=== PATIENT | female | born 1950 | race Caucasian/White ===

== ENCOUNTER → 2019-09-05 | Day surgery (SDC) | payer MEDICARE, OTHER ==
[~2019-09-05] MED LIST: ADULT LOW DOSE81 MG PO; CALCIUM 500 +1 EAC5 PO; CIPRO500 MG PO; COLACE 100 MG100 MG PO; D3 + K2 DOTS 11 EACH PO; ECHINACEA & GO1 EACH PO; ECHINACEA GOLD PO; FISH OIL 1,0001 EAC5 PO; FOLBIC RF TABL1 EACH PO; FORTEO PEN750 MCG/3; FOSAMAX 70 MG T70 M1 PO; HYDROXYZINE HCL25 M1 PO; IRON325 PO; LIDOPATCH1 EACH TOP; LISINOPRIL5 MG PO; LOTREL 5-10 MG1 EACH PO; MEDROLDOSEPACK PO; METOCLOPRAMIDE; NORCO 5-325 TA1 EAC1 PO; NORCO 5-325 TA1 EACH PO; PEPCID40 MG PO; PERCOCET PO; PLAVIX 75 MG TA75 MG PO; PREDNISONE50 MG PO; PROAIR HFA8.5 GM IH; SPIRIVA INH; TYLENOL PM EX-1 EACH PO; ZOCOR20 MG PO; ZPAK PO; ZYRTEC 10 MG TA10 MG PO; ZYRTEC10 M5 PO; [UNRECOGNIZED DRUG - OTHER] PO
[2019-09-05 06:43] LABS: HEMOGLOBIN 10.8 gm/dL (12.0-15.0); MCH 31.2 pg (26.0-34.0); MCHC 34.6 g/dL (28.0-37.0); MPV 8.2 fl. (7.2-11.1); RBC 3.45 mil/uL (4.20-5.00); RDW-CV 12.6 % (10.5-14.5); WBC 4.8 thou/uL (4.0-11.0)
[2019-09-05 06:57] LABS: CALCIUM 8.4 mg/dL (8.5-10.1); CREATININE 1.1 mg/dL (0.6-1.3); POTASSIUM 4.1 mmol/L (3.5-5.1)
--- NOTE | 2019-09-05 10:27 | EKG ---
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: [facility] : 1950 Requested By: Kieran Orosco Order Number: [id number] Reading MD: Imtiaz Flores Measurements Intervals [place] Rate: 73 P: 66 NE: 168 QRS: 49 QRSD: 83 T: 72 QT: 397 QTc: 438 Interpretive Statements Sinus rhythm Borderline low voltage, extremity leads Compared to ECG 03/29/2017 16:38:34 ST (T wave) deviation no longer present Electronically Signed On 09-05-2019 10:25:48 CDT by Imtiaz Flores [email or web address] <ELECTRONICALLY SIGNED> By: Imtiaz Flores MD, [facility] 09/05/19 1025 0640 0640 Imtiaz Flores MD, [facility] /EPI
--- NOTE | 2019-09-12 08:26 | OP ---
[address] [address] OPERATIVE REPORT Name: RAYRAY RAMOS Room: [facility]#: [id number] Admission: 09/05/19 Attend Phys: Kieran Orosco DO Discharge: Date of : 48 Report #: [id number] THIS REPORT FOR: //name// cc: Paula Jeter MD, Elizabeth MD ~ THIS REPORT FOR: //name// CC: Kieran Patricia DATE OF SERVICE: 09/05/2019 PREOPERATIVE DIAGNOSIS: Right shoulder rotator cuff tear, chronic. POSTOPERATIVE DIAGNOSES: Right shoulder rotator cuff tear, chronic with superior labral tear anterior, posterior. PROCEDURES: Right shoulder arthroscopic surgery with extensive debridement of labrum and rotator cuff, subacromial decompression, mini open chronic rotator cuff repair and biceps tenodesis. SURGEON: Kieran Orosco DO AGENT PRODUCER: Teja Mcintyre DO ANESTHESIA: General with interscalene block in preoperative holding per Anesthesia. ESTIMATED BLOOD LOSS: 10 mL. ANTIBIOTICS: 2 grams Ancef IV preoperatively. DRAINS: None. SPECIMENS: None. COMPLICATIONS: None. FINDINGS: Upon arthroscopic examination of the right glenohumeral joint, there was a full thickness tearing of the supraspinatus noted. There was degenerative tearing of the superior labrum noted as well. 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 There was a partial thickness tearing of the subscapularis as well. Subacromial inspection revealed full thickness rotator cuff tear with bursitis and subacromial impingement. HISTORY: The patient is a 68-year-old female with longstanding history of right [facility] [address] [place] [address] OPERATIVE REPORT Name: RAYRAY RAMOS Room: [facility]#: [id number] Admission: 09/05/19 Attend Phys: Kieran Orosco DO Discharge: Date of : 48 Report #: [id number] shoulder pain. MRI was consistent with a full thickness rotator cuff tear. She had evidence of pain for biceps tendon on preoperative exam as well consistent with bicipital labral pain etiology. She has failed nonoperative treatment. She presents today for elective right shoulder arthroscopic surgery with rotator cuff repair, biceps tenodesis and all other indicated procedures. Risks, benefits, complications, indications, alternatives were discussed. She voiced understanding, signed consent and elected to proceed. Risks include but not limited to fracture, infection, neurovascular injury, continued pain, loss of motion, need for subsequent revision surgery, DVT, PE, MT, stroke, and even . DESCRIPTION OF PROCEDURE: The patient was taken to the operative suite, placed in supine position, given benefit of general anesthetic after being given an interscalene block in preoperative holding per anesthesia. She was transferred to beach chair position. All bony prominences were well padded. Right upper extremity was sterilely prepped and draped in usual fashion. Proper operative sites confirmed standard timeout technique. Standard posterior arthroscopic portal was made in the right shoulder. Arthroscopic camera was introduced in the glenohumeral joint, which was thoroughly explored and the above findings noted. Anterior portal was established. Probing of the pertinent structures were performed. I then performed a biceps tenotomy with arthroscopic scissors. Labral debridement as well as rotator cuff debridement was performed with arthroscopic shaver at this time. Debridement of the supraspinatus tear as well as the partial thickness tear of the subscapularis was performed. Pictures were taken throughout this portion of procedure. I then turned my attention to the subacromial space where subacromial decompression was performed with arthroscopic shaver. Again, the rotator cuff tear was identified from the subacromial space as well. I then proceeded to a mini open incision. I proceeded to a mini open anterolateral approach to the shoulder. Anterolateral incision was made just off the anterolateral corner of the acromion. Dissection was carried down to the deltoid fascia, which was split in line with its fibers. Subdeltoid subacromial space was exposed after a bursectomy was performed. Self-retaining retractors were placed. I then identified the rotator cuff tear. The cuff edges were debrided. I felt that a [employer] SpeedBridge technique was appropriate. Two 4.75 mm Bio-SwiveLock suture anchors were placed for the medial row just off the articular cartilage on the rotator cuff footprint. Sutures were passed with a Scorpion suture passer through the rotator cuff and then utilizing a standard mario-cross technique, lateral fixation was performed with 2 more 4.75 mm Bio-SwiveLock suture anchors. This provided excellent fixation of the rotator cuff. I then turned my attention to the bicipital groove, which was opened. Biceps tendon was delivered into the field. It was prepared in a whipstitch fashion utilizing a #2 FiberLoop suture from [employer] and then it was tenodesed into the groove with utilizing an onlay technique utilizing a 4.75 mm Bio-SwiveLock suture anchor. This provided excellent fixation of the biceps tendon as well. Thorough irrigation was then performed. Deep fascial closure was performed with 0 Vicryl in interrupted [id number] [address] OPERATIVE REPORT Name: RAYRAY RAMOS Room: [facility]#: [id number] Admission: 09/05/19 Attend Phys: Kieran Orosco DO Discharge: Date of : 48 Report #: [id number] fashion. Subcuticular closure was performed with 2-0 Vicryl in simple inverted fashion. Skin was closed with running 3-0 Monocryl subcuticular suture with Dermabond on the skin. Portal sites were closed with simple nylon sutures. Sterile dressings were applied. The patient tolerated the procedure well. Sponge, needle counts correct x 2. The patient was taken to recovery room in stable condition. I Kieran Orosco DO, attest that I was present and scrubbed in throughout the entirety of the case excluding skin closure. <ELECTRONICALLY SIGNED> By: Kieran Orosco DO 09/12/19 0826 0910 0950Kieran Orosco DO /nt
== END | disposition home or self-care (01) ==
LOC: M.SUR 05:45 → EDSTATUS 09:48 → M.SUR 09:50
PROVIDERS: Orthopaedic Surgery
DX: M75.121 Complete rotator cuff tear or rupture of right shoulder, not specified as traumatic (principal); G89.29 Other chronic pain; M24.111 Other articular cartilage disorders, right shoulder; M94.211 Chondromalacia, right shoulder; M75.41 Impingement syndrome of right shoulder; I10 Essential (primary) hypertension; E78.5 Hyperlipidemia, unspecified; Z98.890 Other specified postprocedural states; Z79.899 Other long term (current) drug therapy; Z86.73 Personal history of transient ischemic attack (TIA), and cerebral infarction without residual deficits; Z87.891 Personal history of nicotine dependence; Z91.041 Radiographic dye allergy status; Z88.8 Allergy status to other drugs, medicaments and biological substances

== ENCOUNTER 2020-11-15 12:05 | Emergency (ER) | payer MEDICARE, OTHER ==
[~2020-11-15] VITALS: Ht 165.1 cm; Wt 49.9 kg
[2020-11-15 13:01] LABS: MPV 8.2 fl. (7.2-11.1); NUCLEATED RBCS 0 /100WBC
[2020-11-15 13:03] LABS: ABSOLUTE BASOPHILS 0.1 thou/uL (0.0-0.2); ABSOLUTE EOSINOPHILS 0.1 thou/uL (0.0-0.7); ABSOLUTE LYMPHOCYTES 1.1 thou/uL (0.8-5.3); ABSOLUTE MONOCYTES 0.3 thou/uL (0.0-1.2); ABSOLUTE NEUTROPHILS 5.1 thou/uL (1.6-8.1); EOSINOPHILS 1.1 %; HEMATOCRIT 35.7 % (37.0-47.0); HEMOGLOBIN 12.3 gm/dL (12.0-15.0); LYMPHOCYTES 16.5 %; MCHC 34.4 g/dL (28.0-37.0); MCV 90.1 fL (80.0-100.0); PLATELET COUNT* 249 thou/uL (150-400); POLYS 76.4 %; RBC 3.97 mil/uL (4.20-5.00); RDW-CV 12.8 % (10.5-14.5); WBC 6.6 thou/uL (4.0-11.0)
[2020-11-15 13:13] LABS: CALCIUM 8.9 mg/dL (8.5-10.1)
[2020-11-15 13:23] LABS: MAGNESIUM 1.8 mg/dL (1.8-2.4); TOTAL BILIRUBIN 0.5 mg/dL (<0.1-1.0); TOTAL PROTEIN 7.4 g/dL (6.4-8.2)
[2020-11-15] MEDS ORDERED: ZPAK PO (13:28)
[2020-11-15] MEDS ORDERED: PREDNISONE 20 M20 M1 PO (13:28)
[2020-11-15 13:37] VITALS: BP 141/70
--- NOTE | 2020-11-15 17:04 | EKG ---
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
== END 2020-11-15 13:38 | disposition home or self-care (01) ==
LOC: M.ERS 12:05
PROVIDERS: Family Medicine
DX: J44.1 Chronic obstructive pulmonary disease with (acute) exacerbation (principal); E78.5 Hyperlipidemia, unspecified; I10 Essential (primary) hypertension; Z96.641 Presence of right artificial hip joint; Z88.5 Allergy status to narcotic agent; Z91.041 Radiographic dye allergy status; Z90.49 Acquired absence of other specified parts of digestive tract; Z86.73 Personal history of transient ischemic attack (TIA), and cerebral infarction without residual deficits; Z90.722 Acquired absence of ovaries, bilateral